=== PATIENT | female | born 1980 | race Caucasian/White ===

== ENCOUNTER 2017-02-16 18:34 | Emergency (ER) | payer OTHER ==
[~2017-02-16] VITALS: Ht 152.4 cm; Wt 79.4 kg
[~2017-02-16 18:34] MED LIST: ANAPROX DS550 MG PO; BACTRIM DS 8001 TA1 PO; BACTRIM DS 8001 TAB PO; BIAXIN500 MG PO; CATAFLAM50 MG PO; CLARITIN10 MG PO; COMBIVENT1 ARO IH; FLAGYL500 MG PO; HYDROCODONE BIT1 T11 PO; KEFLEX500 MG PO; LOMOTIL 0.025 M1 TA1 PO; MOTRIN800 MG PO; Motrin,Rufen800 MG PO; NAPROSYN500 MG PO; NKHM; PREDNICOT20 MG PO; PREDNISONE10 MG PO; PREDNISONE5 MG PO; PROVENTIL0.09 MG/AC IH; TRAMADOL HCL50 MG PO; ULTRAM50 MG PO; VENTOLIN H0.09 MG/AC INH; VICODIN 5/500 505 MG PO; VICODIN ES 7501 TAB PO; ZITHROMAX Z PA250 MG PO; ZITHROMAX250 MG PO; ZOFRAN ODT4 MG SL
[2017-02-16 19:07] VITALS: BP 116/84
[2017-02-16] MEDS ORDERED: PROAIR HFA8.5 GM INH (19:27)
[2017-02-16] MEDS ORDERED: VALIUM5 MG PO (19:27)
== END 2017-02-16 19:41 | disposition home or self-care (01) ==
LOC: ED 18:34
DX: F41.1 Generalized anxiety disorder (principal); F43.0 Acute stress reaction; J45.909 Unspecified asthma, uncomplicated; F17.200 Nicotine dependence, unspecified, uncomplicated; Z88.1 Allergy status to other antibiotic agents

== ENCOUNTER 2017-03-31 19:08 | Emergency (ER) | payer OTHER ==
[~2017-03-31] VITALS: Ht 152.4 cm; Wt 81.6 kg
[~2017-03-31 19:08] MED LIST changes: +PROAIR HFA8.5 GM INH; +VALIUM5 MG PO
[2017-03-31 19:27] VITALS: BP 125/81
[2017-03-31] MEDS ORDERED: VALIUM5 MG PO (20:50)
[2017-03-31] MEDS ORDERED: LIDEX 0.05% CRE15 GM T (20:51)
== END 2017-03-31 19:31 | disposition home or self-care (01) ==
LOC: ED 19:08
DX: F41.9 Anxiety disorder, unspecified (principal); L23.7 Allergic contact dermatitis due to plants, except food; F17.200 Nicotine dependence, unspecified, uncomplicated; Z88.1 Allergy status to other antibiotic agents

== ENCOUNTER 2017-11-09 06:22 | Emergency (ER) | payer OTHER ==
[~2017-11-09] VITALS: Ht 152.4 cm; Wt 83.9 kg
[~2017-11-09 06:22] MED LIST changes: +LIDEX 0.05% CRE15 GM T
[2017-11-09 06:29] VITALS: BP 118/74
[2017-11-09] MEDS ORDERED: MEDROL DOSEPAK4 MG PO (07:14)
[2017-11-09] MEDS ORDERED: BANOPHEN50 MG PO (07:14)
== END 2017-11-09 07:35 | disposition home or self-care (01) ==
LOC: ED 06:22
DX: S40.862A Insect bite (nonvenomous) of left upper arm, initial encounter (principal); S40.861A Insect bite (nonvenomous) of right upper arm, initial encounter; S20.369A Insect bite (nonvenomous) of unspecified front wall of thorax, initial encounter; S00.86XA Insect bite (nonvenomous) of other part of head, initial encounter; F41.9 Anxiety disorder, unspecified; F17.200 Nicotine dependence, unspecified, uncomplicated; F10.10 Alcohol abuse, uncomplicated; Z88.1 Allergy status to other antibiotic agents; Z88.8 Allergy status to other drugs, medicaments and biological substances; W57.XXXA Bitten or stung by nonvenomous insect and other nonvenomous arthropods, initial encounter; Y93.89 Activity, other specified; Y92.89 Other specified places as the place of occurrence of the external cause; Y99.8 Other external cause status